=== PATIENT | female | born 1935 | race Caucasian/White ===

== ENCOUNTER → 2017-12-11 | Outpatient (CLI) | payer OTHER ==
[~2017-12-11] MED LIST: ALBU90OI6 INH; ALBU90OI61 INH; ALEN70 PO; ASPI81EC; ATOR10; BUDE.25 NEB; CENTRUM COMPLE1 EACH PO; CHOL10002; COMBIVENT RESPIM4 GM INH; CYAN1000 PO; CYCL10 PO; Calcitriol0.5 MCG PO; Cipro250 MG PO; ESTR1; FISH OIL 1,0001 EAC1 PO; FLUO20 PO; FLUSAL2505 INH; Fish Oil300 MG PO; Flagyl500 MG PO; GLYMET1.25; HYDACE5 PO; HYDCHL25 PO; LISI20 PO; LORA1 PO; METF500; METF500 PO; METR250; MIRT15; MULVITA; NITR100; NITR100 PO; OXYB5; PANT40 PO; PROM25 PO; Prinivil10 MG PO; RAMI1.25; RAMI2.5; RXCYCL10 PO; RXHYDACE PO; RXLORA1 PO; SIMV40 PO; SIMV80 PO; TETR250; TOLT2; TRAZ100; TRAZ50 PO; Vitamin B Comple1 EA PO; Zofran Odt4 MG SL; [UNRECOGNIZED DRUG - REMARK]
== END | disposition home or self-care (01) ==
LOC: LAB 17:32
DX: N39.0 Urinary tract infection, site not specified (principal)
CPT/HCPCS: 87086

== ENCOUNTER → 2019-03-04 | Outpatient (CLI) | payer OTHER | END | disposition home or self-care (01) | LOC: LAB SHORT 13:39 → LAB 13:39 | DX: N39.0 Urinary tract infection, site not specified (principal) | CPT/HCPCS: 87077; 87086; 87186 ==

== ENCOUNTER → 2019-05-27 | Outpatient (CLI) | payer OTHER ==
[2019-05-27 15:52] LABS: Alanine Aminotransfer (ALT/SGP 19 U/L (12-78); Albumin, Blood 4.1 g/dL (3.4-5.0); Albumin/Globulin Ratio 1.3 (0.8-1.8); Alk Phos 84 U/L (50-136); Anion Gap 6 mmol/L (6-16); Bilirubin, Total 0.6 mg/dL (0.1-1.0); Blood Urea Nitrogen 19 mg/dL (8-24); Bun/Creatinine Ratio 17.6 (12.0-20.0); CHOL/HDL RATIO 2.5; CO2, Blood 29 mmol/L (21-32); Calcium, Blood 9.2 mg/dL (8.5-10.1); Chloride, Blood 105 mmol/L (98-108); Cholesterol 125 mg/dL (50-200); Creatinine, Blood 1.08 mg/dL (0.40-1.00); Globulin, Blood 3.2 g/dL (2.2-4.0); Glomerular Filtration Rate 52 (60-); Glucose, Blood 132 mg/dL (70-99); HDL Cholesterol 50 mg/dL (>39); Low Density Lipoprotein Chol 52 mg/dL (0-110); Potassium, Blood 4.2 mmol/L (3.5-5.5); Sodium, Blood 140 mmol/L (136-145); Total Protein, Blood 7.3 g/dL (6.4-8.2); Triglycerides 115 mg/dL (30-160); Very Low Density Lipoprot Chol 23 mg/dL (6-32)
[2019-05-27 15:56] LABS: Aspartate Aminotrans (AST/SGOT 18 U/L (12-37)
== END ==
LOC: LAB SHORT 14:18 → LAB 14:18
PROVIDERS: Hospitalist
DX: E11.22 Type 2 diabetes mellitus with diabetic chronic kidney disease (principal); I12.9 Hypertensive chronic kidney disease with stage 1 through stage 4 chronic kidney disease, or unspecified chronic kidney disease; N18.9 Chronic kidney disease, unspecified; E11.42 Type 2 diabetes mellitus with diabetic polyneuropathy; E78.5 Hyperlipidemia, unspecified
CPT/HCPCS: 80053; 80061; 83036

== ENCOUNTER → 2019-12-01 | Outpatient (CLI) | payer OTHER ==
[~2019-12-01] MED LIST changes: -ASPI81EC; +Aspirin EC81 MG PO; -CENTRUM COMPLE1 EACH PO; +CEPH500 PO; +FISH OIL 1,001000 MG PO; -FLUO20 PO; +Lipitor20 MG PO; +MIRT15 PO; +MULTI VITAMIN1 EACH PO; +MYNEPHRON CAPSUL1 MG PO; +Prozac20 MG PO
== END | disposition home or self-care (01) ==
LOC: LAB SHORT 14:16 → LAB 14:16
DX: N39.0 Urinary tract infection, site not specified (principal)
CPT/HCPCS: 87077; 87086; 87186

== ENCOUNTER → 2020-11-08 | Outpatient (CLI) | payer OTHER | LOC: LAB SHORT 14:43 → LAB 14:43 | DX: N30.00 Acute cystitis without hematuria (principal) | CPT/HCPCS: 87077; 87086; 87147; 87186 ==

== ENCOUNTER → 2021-06-01 | Outpatient (CLI) | payer MEDICARE, OTHER ==
[2021-06-01 15:04] LABS: BASOPHILS ABSOLUTE AUTO 0.06 K/mm3 (0.00-0.23); BASOPHILS PERCENT AUTO 1 % (0-2); EOSINOPHILS ABSOLUTE AUTO 0.08 K/mm3 (0.00-0.68); EOSINOPHILS PERCENT AUTO 1 % (0-6); Hematocrit 38.1 % (33.0-51.0); Hemoglobin 12.3 g/dL (11.5-16.0); IMMATURE GRAN ABSOLUTE AUTO 0.02 K/mm3 (0.00-0.10); IMMATURE GRAN PERCENT AUTO 0 % (0-1); LYMPHOCYTES ABSOLUTE AUTO 1.47 K/mm3 (0.84-5.20); LYMPHOCYTES PERCENT AUTO 22 % (21-46); MONOCYTES ABSOLUTE AUTO 0.35 K/mm3 (0.16-1.47); MONOCYTES PERCENT AUTO 5 % (4-13); Mean Corpuscular HGB 30.1 pg (26.0-34.0); Mean Corpuscular HGB Conc 32.3 g/dL (31.5-36.5); Mean Corpuscular Volume 93 fL (80-100); Mean Platelet Volume 9.9 fL (9.1-12.4); NEUTROPHILS ABSOLUTE AUTO 4.78 K/mm3 (1.96-9.15); NEUTROPHILS PERCENT AUTO 71 % (41-73); Platelet Count 199 K/mm3 (150-400); RDW Standard Deviation 44.6 fL (35.1-46.3); Red Blood Cell Count 4.09 M/mm3 (3.80-5.20); White Blood Cell Count 6.76 K/mm3 (4.00-11.30)
[2021-06-01 15:50] LABS: CHOL/HDL RATIO 3.7; Cholesterol 158 mg/dL (50-200); HDL Cholesterol 43 mg/dL (>39); Low Density Lipoprotein Chol 87 mg/dL (0-110); Triglycerides 142 mg/dL (30-160); Very Low Density Lipoprot Chol 28 mg/dL (6-32)
[2021-06-01 16:12] LABS: Albumin, Blood 4.1 g/dL (3.4-5.0); Bilirubin, Total 0.7 mg/dL (0.1-1.0); Bun/Creatinine Ratio 20.1 (12.0-20.0); Calcium, Blood 9.1 mg/dL (8.5-10.1); Creatinine, Blood 1.49 mg/dL (0.40-1.00); Globulin, Blood 4.2 g/dL (2.2-4.0); Potassium, Blood 5.4 mmol/L (3.5-5.5); Total Protein, Blood 8.3 g/dL (6.4-8.2)
== END | disposition home or self-care (01) ==
LOC: LAB SHORT 13:48 → LAB 13:48
PROVIDERS: Hospitalist
DX: E11.42 Type 2 diabetes mellitus with diabetic polyneuropathy (principal); E11.22 Type 2 diabetes mellitus with diabetic chronic kidney disease; I12.9 Hypertensive chronic kidney disease with stage 1 through stage 4 chronic kidney disease, or unspecified chronic kidney disease; N18.31 Chronic kidney disease, stage 3a; E78.5 Hyperlipidemia, unspecified
CPT/HCPCS: 80053; 80061; 83036; 83970; 85025

== ENCOUNTER → 2022-08-09 | Outpatient (CLI) | payer MEDICARE, OTHER | LOC: LAB 11:15 → LAB SHORT 11:15 | DX: R30.0 Dysuria (principal) | CPT/HCPCS: 87077; 87086; 87186 ==

== ENCOUNTER → 2023-03-07 | Outpatient (CLI) | payer MEDICARE, OTHER ==
[2023-03-07 16:56] LABS: Microalb/Creat Ratio UR, Rand 125.984 mg/g (0.000-30.000)
[2023-03-07 18:45] LABS: Calcium, Blood 9.3 mg/dL (8.5-10.1); Potassium, Blood 3.9 mmol/L (3.5-5.5)
== END | disposition home or self-care (01) ==
LOC: LAB SHORT 09:35 → LAB 09:35
PROVIDERS: Hospitalist
DX: E11.22 Type 2 diabetes mellitus with diabetic chronic kidney disease (principal); N18.9 Chronic kidney disease, unspecified; N25.81 Secondary hyperparathyroidism of renal origin
CPT/HCPCS: 80048; 82043; 82570; 83970

== ENCOUNTER → 2023-05-02 | Outpatient (CLI) | payer MEDICARE, OTHER | END | disposition home or self-care (01) | LOC: LAB SHORT 10:30 → LAB 10:30 | DX: N39.46 Mixed incontinence (principal) | CPT/HCPCS: 87077; 87086; 87186 ==

== ENCOUNTER 2023-05-21 11:35 | Inpatient (IN) | payer MEDICARE, OTHER ==
[~2023-05-21] VITALS: Ht 160 cm; Wt 51.8 kg
[2023-05-21 12:19] LABS: BASOPHILS ABSOLUTE AUTO 0.03 K/mm3 (0.00-0.23); BASOPHILS PERCENT AUTO 1 % (0-2); EOSINOPHILS ABSOLUTE AUTO 0.06 K/mm3 (0.00-0.68); EOSINOPHILS PERCENT AUTO 1 % (0-6); Hematocrit 35.9 % (33.0-51.0); Hemoglobin 11.8 g/dL (11.5-16.0); IMMATURE GRAN ABSOLUTE AUTO 0.02 K/mm3 (0.00-0.10); IMMATURE GRAN PERCENT AUTO 0 % (0-1); LYMPHOCYTES ABSOLUTE AUTO 1.35 K/mm3 (0.84-5.20); LYMPHOCYTES PERCENT AUTO 21 % (21-46); MONOCYTES PERCENT AUTO 6 % (4-13); Mean Corpuscular HGB 29.3 pg (26.0-34.0); Mean Corpuscular HGB Conc 32.9 g/dL (31.5-36.5); Mean Corpuscular Volume 89 fL (80-100); Mean Platelet Volume 9.6 fL (9.1-12.4); NEUTROPHILS ABSOLUTE AUTO 4.66 K/mm3 (1.96-9.15); NEUTROPHILS PERCENT AUTO 72 % (41-73); Platelet Count 161 K/mm3 (150-400); RDW Coefficient Variation 13.2 % (11.7-14.2); RDW Standard Deviation 43.2 fL (35.1-46.3); Red Blood Cell Count 4.03 M/mm3 (3.80-5.20); White Blood Cell Count 6.52 K/mm3 (4.00-11.30)
[2023-05-21] MEDS ORDERED: PROZAC2010 PO ×2 (12:23→12:24)
[2023-05-21] MEDS ORDERED: LISI20 PO (12:23)
[2023-05-21] MEDS ORDERED: CALCITRIOL0.5 MC1 PO (12:23)
[2023-05-21] MEDS ORDERED: OXYB5 PO (12:23)
[2023-05-21] MEDS ORDERED: PANTOPRAZOLE SO40 M2 PO (12:24)
[2023-05-21] MEDS ORDERED: REMERON1510 PO (12:24)
[2023-05-21 12:45] LABS: Albumin, Blood 3.2 g/dL (3.4-5.0); Albumin/Globulin Ratio 0.8 (0.8-1.8); Bilirubin, Total 0.6 mg/dL (0.1-1.0); Bun/Creatinine Ratio 16.7 (12.0-20.0); Calcium, Blood 8.9 mg/dL (8.5-10.1); Creatinine, Blood 1.02 mg/dL (0.40-1.00); Globulin, Blood 3.9 g/dL (2.2-4.0); Potassium, Blood 4.4 mmol/L (3.5-5.5); Total Protein, Blood 7.1 g/dL (6.4-8.2)
[2023-05-21 12:53] LABS: Source, Urine Clean Catch
[2023-05-21 12:57] LABS: Bilirubin, Urine Neg (Neg); Blood, Urine 2+ (Neg); Glucose Qualitative, Urine Neg (Neg); Ketones, Urine Neg (Neg); Leukocyte Esterase, Urine 3+ (Neg); Nitrite, Urine Neg (Neg); Protein, Urine 2+ (Neg); Urobilinogen, Urine 1+ (Normal)
[2023-05-21 13:11] LABS: Appearance, Urine Hazy (Clear); Color, Urine Yellow (P-Yellow)
[2023-05-21 13:15] LABS: White Blood Cells, Urine TNTC /hpf (0-5)
[2023-05-21 13:16] LABS: Bacteria Many /hpf; Mucus Light (0-Heavy); Red Blood Cells, Urine 0-2 /hpf (0-2); Squamous Epithelial Cells Rare /hpf (Few); Transitional Epithelial Cells Rare /hpf (0-Rare)
[2023-05-21] MEDS ORDERED: Simvastatin40 MG PO (16:38)
[2023-05-21 17:38] VITALS: BP 169/90
--- NOTE | 2023-05-21 18:00 | NUR ---
pt arrived to 339 via gurney from ER, report obtained, pt is a/ox3, forgetful and very [place], in good spirits, states she's feeling some better, cooperative with care, follows commands well, denies pain, lungs are clear slightly course in bases, on r/a, no cough noted, or reported, hrr, tele is ordered, will place as soon as available, was reported she was sr in ed, no edema noted, ppp+2, cap refill<3sec, vs stable, afebrile, piv to rfa, site is clear and patent, btx4, abd flat soft nontender, voids via purwick at this time as she feels too weak to get to bsc, skin c/w/d, with some small echymotic areas to arms, skin is frail, willie ngo, oriented to room layout and call system, call light in reach. instructed her to not get up without assist, but she forgot and attempted, bed alarm activated.
[2023-05-21 19:54] VITALS: BP 153/81
[2023-05-22 04:29] VITALS: BP 154/96
[2023-05-22 05:53] LABS: BASOPHILS ABSOLUTE AUTO 0.04 K/mm3 (0.00-0.23); BASOPHILS PERCENT AUTO 1 % (0-2); EOSINOPHILS ABSOLUTE AUTO 0.11 K/mm3 (0.00-0.68); EOSINOPHILS PERCENT AUTO 2 % (0-6); Hematocrit 36.1 % (33.0-51.0); Hemoglobin 11.9 g/dL (11.5-16.0); IMMATURE GRAN ABSOLUTE AUTO 0.03 K/mm3 (0.00-0.10); IMMATURE GRAN PERCENT AUTO 1 % (0-1); LYMPHOCYTES ABSOLUTE AUTO 1.19 K/mm3 (0.84-5.20); LYMPHOCYTES PERCENT AUTO 22 % (21-46); MONOCYTES ABSOLUTE AUTO 0.54 K/mm3 (0.16-1.47); MONOCYTES PERCENT AUTO 10 % (4-13); Mean Corpuscular Volume 88 fL (80-100); Mean Platelet Volume 9.8 fL (9.1-12.4); NEUTROPHILS ABSOLUTE AUTO 3.63 K/mm3 (1.96-9.15); NEUTROPHILS PERCENT AUTO 66 % (41-73); Platelet Count 149 K/mm3 (150-400); RDW Coefficient Variation 13.2 % (11.7-14.2); RDW Standard Deviation 42.2 fL (35.1-46.3); Red Blood Cell Count 4.11 M/mm3 (3.80-5.20); White Blood Cell Count 5.54 K/mm3 (4.00-11.30)
--- NOTE | 2023-05-22 06:07 | NUR ---
SHIFT SUMMERY PT RESSTING IN BED, PT STATED SHE WAS COLD WARM BLANKETS APPLYED. PT GIVEN A SANDWITCH , PT HAD STATED SHE WAS HUNGERY. PURE WICK WITH YELLOW URINE IN CONTAINER. PT VERY HOPI BUT DID FIRE SAFETY TEACHING UNSURE IF PT ABLE TO HEAR ENOUGH OF TEACHING. CALL LIGHT IN REACH BED ALARM ON.
[2023-05-22 06:32] LABS: Calcium, Blood 8.9 mg/dL (8.5-10.1); Creatinine, Blood 1.12 mg/dL (0.40-1.00); Potassium, Blood 4.2 mmol/L (3.5-5.5)
[2023-05-22 07:37] VITALS: BP 156/75
--- NOTE | 2023-05-22 09:00 | NUR ---
pt laying in bed awake a/ox3, forgetful at time, profoundly jackson, lungs are clear, slightly course in bases, resp even and unlabored, no cough noted, hrr, tele in place running sr per monitor, see strip, no edema noted, ppp+2, cap refill <3sec, vs stable, afebrile, piv site to rfa site clear and patent, btx4 abd flat soft nontender, voids via purwick, draing liza urine skin has an abrasion to right hand, dressing in place, maew, weak, willie, call light in reach.
[2023-05-22 14:49] VITALS: BP 120/63
[2023-05-22] MEDS ORDERED: XARELTO20 MG PO (16:58)
[2023-05-22] MEDS ORDERED: CEFD300 PO (16:59)
--- NOTE | 2023-05-22 18:46 | NUR ---
pt doing ok, is more alert and conversing with family while eating dinner at this time, sitting up on the side of the bed eating dinner, new dressing was placed on her right hand by medical student, continues with negin, no further changes this shift. call light in reach.
[2023-05-22 20:10] VITALS: BP 158/92
[2023-05-23 04:43] VITALS: BP 148/72
--- NOTE | 2023-05-23 05:34 | NUR ---
CHRONOMETER REPAIRER SUMMARY NO ACUTE EVENTS OVERNIGHT. A&OX4. [place]. PATIENT EFFECTIVELY COMMUNICATES NEEDS. VSS. RR EVEN AND UNLABORED ON RA. PATIENT IS ON BEDREST. PURWICK IN PLACE AND DRAINING YELLOW-COLORED URINE. SKIN TEAR TO RIGHT POSTERIOR HAND WITH OVERLYING MEPILEX DRESSING. BED LOW AND LOCKED. CALL LIGHT WITHIN REACH. THIS RN WILL CONTINUE TO MONITOR.
[2023-05-23 08:12] VITALS: BP 142/95
--- NOTE | 2023-05-23 11:36 | NUR ---
DISCHARGE INSTRUCTIONS COMPLETED AND DISCUSSED WITH PT AND EXPRESSING UNDERSTANDING. EXPLAINED TO PTS ANTIBIOTIC NEEDS TO BE PICKED UP SANIA AND TAKEN FOR THE MORNING. DRESSED AND TAKEN TO [facility] VIA W/C.
--- NOTE | 2023-05-23 12:44 | NUR ---
UPDATE TO DISCHARGE MEDICATIONS PER DR. RUANO PATIENT WILL ONLY NEED A 7 DAY REGIMEN OF CEFDINIR AT DISCHARGE. [facility] CALLED AND GIVEN VERBAL UPDATE TO PRESCRIPTION TO CHANGE FROM 14 DAY TO 7 DAY COURSE. .
== END 2023-05-23 11:09 | disposition home or self-care (01) | DRG 689 ==
LOC: ER 11:35 → MEDS 11:36
PROVIDERS: Family Medicine; Physician Assistant; ADMIT Internal Medicine
DX: N39.0 Urinary tract infection, site not specified (principal); G92.8 Other toxic encephalopathy; R41.82 Altered mental status, unspecified; I48.91 Unspecified atrial fibrillation; B96.1 Klebsiella pneumoniae [K. pneumoniae] as the cause of diseases classified elsewhere; Z66 Do not resuscitate; M19.90 Unspecified osteoarthritis, unspecified site; F32.A Depression, unspecified; E78.5 Hyperlipidemia, unspecified; N18.30 Chronic kidney disease, stage 3 unspecified; E11.22 Type 2 diabetes mellitus with diabetic chronic kidney disease; I12.9 Hypertensive chronic kidney disease with stage 1 through stage 4 chronic kidney disease, or unspecified chronic kidney disease; Z88.0 Allergy status to penicillin; Z88.2 Allergy status to sulfonamides; Z88.5 Allergy status to narcotic agent; Z88.1 Allergy status to other antibiotic agents; Z88.8 Allergy status to other drugs, medicaments and biological substances; Z79.82 Long term (current) use of aspirin; Z79.899 Other long term (current) drug therapy; Z79.2 Long term (current) use of antibiotics; Z90.89 Acquired absence of other organs; Z90.49 Acquired absence of other specified parts of digestive tract; Z90.710 Acquired absence of both cervix and uterus; Z98.890 Other specified postprocedural states; Z85.3 Personal history of malignant neoplasm of breast
CPT/HCPCS: 36415; 51701; 70450; 71046; 80048; 80053; 81001; 82140; 84443; 85025; 87077; 87086; 87186; 93005; 93010; 96365-59; 96366-59; 96376; 97162; 97166; 97530; 97535; 99285-25; A9270; G0378; J0696

== ENCOUNTER → 2023-06-12 | Outpatient (CLI) | payer MEDICARE, OTHER ==
[~2023-06-12] MED LIST changes: +CALCITRIOL0.5 MC1 PO; +CEFD300 PO; +OXYB5 PO; +PANTOPRAZOLE SO40 M2 PO; +PROZAC2010 PO; +REMERON1510 PO; +Simvastatin40 MG PO; +XARELTO20 MG PO
[2023-06-12 17:38] LABS: Source, Urine Clean Catch
[2023-06-12 18:53] LABS: Appearance, Urine Hazy (Clear); Bilirubin, Urine Neg (Neg); Blood, Urine 5+ (Neg); Color, Urine Amber (P-Yellow); Glucose Qualitative, Urine Neg (Neg); Ketones, Urine Neg (Neg); Leukocyte Esterase, Urine 1+ (Neg); Nitrite, Urine Neg (Neg); Protein, Urine 2+ (Neg); Specific Gravity, Urine 1.015 (1.003-1.022); Urobilinogen, Urine NORM (Normal)
[2023-06-12 19:02] LABS: Bacteria Mod /hpf; Calcium Oxalate Crystals Mod /hpf; Red Blood Cells, Urine 50-100 /hpf (0-2); Squamous Epithelial Cells Few /hpf (Few)
[2023-06-12 19:03] LABS: Transitional Epithelial Cells Rare /hpf (0-Rare)
== END | disposition home or self-care (01) ==
LOC: LAB SHORT 17:36 → LAB 17:36
PROVIDERS: Hospitalist
DX: R31.9 Hematuria, unspecified (principal)
CPT/HCPCS: 81001; 87086

== ENCOUNTER → 2023-07-30 | Outpatient (CLI) | payer MEDICARE, OTHER | LOC: LAB 09:00 → LAB SHORT 09:00 | DX: R31.0 Gross hematuria (principal) | CPT/HCPCS: 87086 ==

== ENCOUNTER → 2024-10-17 | Outpatient (CLI) | payer MEDICARE, OTHER ==
[~2024-10-17] MED LIST changes: +POTA10T PO
== END ==
LOC: LAB SHORT 15:15 → LAB 15:15
DX: N30.00 Acute cystitis without hematuria (principal)
CPT/HCPCS: 87086

== ENCOUNTER 2024-10-26 06:36 | Inpatient (IN) | payer OTHER, MEDICARE ==
[2024-10-26] VITALS (10 sets, daily range): BP systolic 100–130; BP diastolic 59–92
[~2024-10-26] VITALS: Ht 160 cm; Wt 50.1 kg
[~2024-10-26 06:36] MED LIST changes: -POTA10T PO
[2024-10-26 08:40] LABS: BASOPHILS ABSOLUTE AUTO 0.06 K/mm3 (0.00-0.23); BASOPHILS PERCENT AUTO 1 % (0-2); EOSINOPHILS ABSOLUTE AUTO 0.08 K/mm3 (0.00-0.68); EOSINOPHILS PERCENT AUTO 1 % (0-6); Hematocrit 37.6 % (33.0-51.0); Hemoglobin 12.3 g/dL (11.5-16.0); IMMATURE GRAN ABSOLUTE AUTO 0.05 K/mm3 (0.00-0.10); IMMATURE GRAN PERCENT AUTO 1 % (0-1); LYMPHOCYTES ABSOLUTE AUTO 2.16 K/mm3 (0.84-5.20); LYMPHOCYTES PERCENT AUTO 30 % (21-46); MONOCYTES ABSOLUTE AUTO 0.51 K/mm3 (0.16-1.47); MONOCYTES PERCENT AUTO 7 % (4-13); Mean Corpuscular HGB 29.3 pg (26.0-34.0); Mean Corpuscular HGB Conc 32.7 g/dL (31.5-36.5); Mean Corpuscular Volume 90 fL (80-100); Mean Platelet Volume 9.9 fL (9.1-12.4); NEUTROPHILS ABSOLUTE AUTO 4.42 K/mm3 (1.96-9.15); NEUTROPHILS PERCENT AUTO 61 % (41-73); Platelet Count 266 K/mm3 (150-400); RDW Coefficient Variation 14.9 % (11.7-14.2); White Blood Cell Count 7.28 K/mm3 (4.00-11.30)
[2024-10-26 08:50] LABS: Bun/Creatinine Ratio 24.7 (12.0-20.0); Calcium, Blood 9.8 mg/dL (8.5-10.1); Creatinine, Blood 1.9 mg/dL (0.40-1.00); Potassium, Blood 4.8 mmol/L (3.5-5.5)
[2024-10-26] MEDS ORDERED: POTA10T PO (09:06)
[2024-10-26 09:11] LABS: International Normalized Ratio 1.08; Prothrombin Time Results 11.5 Sec (9.7-11.5)
[2024-10-26] MEDS ORDERED: Morphine Sulfate 4 MG/1 ML Injection IV ONE (09:20)
[2024-10-26] MEDS ORDERED: FLU VACC TS2024-25(6MOS UP)/PF 45 MCG/0.5 ML SYRINGE IM SCH (10:40)
[2024-10-26] MEDS ORDERED: FentaNYL Citrate 50 MCG/ML 2 ML Injection IV PRN (10:40)
[2024-10-26] MEDS ORDERED: NS 1,000 ML IV SCH (10:40)
[2024-10-26] MEDS ORDERED: CeFAZolin Sodium 2,000 MG in NS 100 ML IV SCH ×2 (13:20→23:45)
[2024-10-26] MEDS ORDERED: Tranexamic Acid 100 ML IV SCH ×2 (13:20)
[2024-10-26] MEDS ORDERED: propofoL 20 ML IV ONE (15:20)
[2024-10-26] MEDS ORDERED: FentaNYL Citrate 50 MCG/ML 2 ML Injection ONE (15:21)
[2024-10-26] MEDS ORDERED: ePHEDrine Sulfate 50 MG/ML 1ML Injection ONE (15:52)
[2024-10-26] MEDS ORDERED: Ondansetron HCl 2 MG / ML 2ML Vial ONE (16:07)
[2024-10-26] MEDS ORDERED: HydrALAZINE HCl 20 MG / ML 1ML Vial IV PRN (16:20)
--- NOTE | 2024-10-26 19:00 | NUR ---
ARRIVAL NOTE/SUMMARY PT ARRIVED TO ROOM 213 FROM PACU. DRESSINGS TO R HIP C/D/I, CIRCULATION TO RLE C/D/I, CAP REFILL <2 SECS. PT IS TOLERATING PO FLUIDS AND MINIMAL FOOD INTAKE W/O N/V. PAIN TREATED W/ FENTANYL PER EMAR DUE TO GRIMACING W/ MOVEMENT. PT CURRENTLY RESTING PEACEFULLY. VSS, PT IS ON RA W/ O2 SATS 98-100%. CONSULTED W/ DR. PARSONS REGARDING NEED FOR TELE PACU REPORTED PT WAS IN AFIB, NO ORDER FOR TELE RECIEVED. PAS IN PLACE. SPOUSE AT BEDSIDE WHO IS PT'S SOLE CAREGIVER AT HOME VOICES NEED FOR MORE CAREGIVER/FINANCIAL ASSISTANCE AT HOME. PT TO CONSULT W/ PALLIATIVE CARE AND CARE MANAGEMENT. NOC NURSE NOTIFIED. PT IS EXTREMELY [place] AND IS NOT RESPONDING VERBALLY TO STAFF, RESPONDS TO SPOUSE W/ SHORT ANSWERS. PT'S FRIEND TAMMY WAS AT BEDSIDE FOR SOME TIME POST OP AND IS KNOWLEDGABLE ABOUT PT'S HEALTH HISTORY. PT RESTING W/ CALL LIGHT IN REACH AND BED ALARM ON FOR SAFETY.
[2024-10-26] MEDS ORDERED: Polyethylene Glycol 3350 17 gm PO SCH (21:00)
[2024-10-26] MEDS ORDERED: Mirtazapine 15 MG Tab PO SCH (21:00)
[2024-10-26] MEDS ORDERED: Atorvastatin 10 MG Tab PO SCH (21:00)
[2024-10-26] MEDS ORDERED: Acetaminophen 325 MG TABLET PO PRN (21:30)
[2024-10-27 00:23] VITALS: BP 116/59
[2024-10-27] MEDS ORDERED: CeFAZolin Sodium 1,000 MG in NS 50 ML IV SCH (04:00)
--- NOTE | 2024-10-27 04:22 | NUR ---
SHIFT SUMMARY POD1 R HIP NAILING. AQUACEL TO R HIP C/D/I. PATIENT HAS PUREWICK IN PLACE, VOIDING. AOX1-2 PATIENT IS REDIRECTABLE. SPOUSE IN ROOM T/O NIGHT. MEDICATED FOR PAIN. TOLERATING PO INTAKE, REPOSITIONED T/O NIGHT. BED ALARM ON, CALL LIGHT IN REACH, VSS.
[2024-10-27 04:32] VITALS: BP 95/65
[2024-10-27 05:50] LABS: BASOPHILS ABSOLUTE AUTO 0.02 K/mm3 (0.00-0.23); BASOPHILS PERCENT AUTO 0 % (0-2); EOSINOPHILS ABSOLUTE AUTO 0.06 K/mm3 (0.00-0.68); EOSINOPHILS PERCENT AUTO 1 % (0-6); Hematocrit 33.7 % (33.0-51.0); IMMATURE GRAN ABSOLUTE AUTO 0.02 K/mm3 (0.00-0.10); IMMATURE GRAN PERCENT AUTO 0 % (0-1); LYMPHOCYTES ABSOLUTE AUTO 1.75 K/mm3 (0.84-5.20); LYMPHOCYTES PERCENT AUTO 22 % (21-46); MONOCYTES ABSOLUTE AUTO 0.67 K/mm3 (0.16-1.47); MONOCYTES PERCENT AUTO 9 % (4-13); Mean Corpuscular HGB 29.3 pg (26.0-34.0); Mean Corpuscular HGB Conc 32.6 g/dL (31.5-36.5); Mean Corpuscular Volume 90 fL (80-100); Mean Platelet Volume 9.5 fL (9.1-12.4); NEUTROPHILS ABSOLUTE AUTO 5.32 K/mm3 (1.96-9.15); NEUTROPHILS PERCENT AUTO 68 % (41-73); Platelet Count 185 K/mm3 (150-400); RDW Coefficient Variation 14.9 % (11.7-14.2); RDW Standard Deviation 48.5 fL (35.1-46.3); Red Blood Cell Count 3.76 M/mm3 (3.80-5.20); White Blood Cell Count 7.84 K/mm3 (4.00-11.30)
[2024-10-27] MEDS ORDERED: Pantoprazole Sodium 40 MG Tab PO SCH (06:00)
[2024-10-27 06:27] LABS: Bun/Creatinine Ratio 27.1 (12.0-20.0); Calcium, Blood 9.5 mg/dL (8.5-10.1); Creatinine, Blood 1.44 mg/dL (0.40-1.00); Potassium, Blood 5.1 mmol/L (3.5-5.5)
[2024-10-27 07:20] VITALS: BP 102/62
[2024-10-27] MEDS ORDERED: Heparin Sodium,Porcine 5,000 UNIT/0.5 ML SDV SC SCH (09:00)
[2024-10-27] MEDS ORDERED: FLUoxetine HCL 20 MG CAP PO SCH (09:00)
[2024-10-27] MEDS ORDERED: Calcitriol 0.25 MCG Cap PO SCH (09:00)
[2024-10-27] MEDS ORDERED: Heparin Sodium 5000 Units/ML 1ML MDV SC SCH (09:00)
[2024-10-27] MEDS ORDERED: Potassium Chloride 10 Meq Tablet SA PO SCH (09:00)
[2024-10-27] MEDS ORDERED: Enoxaparin 30 MG/0.3 ML SYR SC SCH (09:00)
[2024-10-27] MEDS ORDERED: TraMADol HCl 50 MG Tab PO PRN (13:50)
[2024-10-27 15:27] VITALS: BP 93/54
--- NOTE | 2024-10-27 16:12 | NUR ---
SHIFT SUMMARY POD 1 R HIP NAILING DRESSING TO R HIP CDI. PT UP IN CHAIR DURING SHIFT REQUIRES 2 ASSIST WITH TRANSFER, DIFFICULTY FOLLOWING DIRECTIONS R/T BASELINE DEMENTIA AND BEING HARD OF HEARING. DOES NOT USE CALL LIGHT, CHAIR ALARM ON DURING SHIFT. TOLERATING DIET WELL. PLAN WILL BE TO DISCHARGE TO SNF ONCE
[2024-10-27 19:20] VITALS: BP 96/52
--- NOTE | 2024-10-28 04:28 | NUR ---
SHIFT SUMMARY; PATIENT SLEPT IN SHORT INTERVALS. BUT DID NOT TRY TO GET UP TONIGHT, SPOUSE STAYED IN ROOM ALL NIGHT. MEDICATED FOR PAIN X 2. INCONT LARGE CLEAR URINE X 1, NO BMS YET.BED ALARM ON.
[2024-10-28 05:04] VITALS: BP 133/74
[2024-10-28 05:50] LABS: Bun/Creatinine Ratio 26.2 (12.0-20.0); Calcium, Blood 8.9 mg/dL (8.5-10.1); Creatinine, Blood 1.22 mg/dL (0.40-1.00); Potassium, Blood 5.3 mmol/L (3.5-5.5)
[2024-10-28 07:48] VITALS: BP 114/68
[2024-10-28] MEDS ORDERED: TraMADol HCl 50 MG Tab PO PRN (11:49)
[2024-10-28] MEDS ORDERED: DiphenhydrAMINE HCL 25 MG Cap PO PRN (14:45)
[2024-10-28] MEDS ORDERED: OxyCODONE 5 mg/Acetamin 325 mg TABLET PO PRN (14:45)
[2024-10-28] MEDS ORDERED: Sennosides 8.6 MG Tab PO PRN (14:45)
[2024-10-28 15:35] VITALS: BP 96/56
--- NOTE | 2024-10-28 16:38 | NUR ---
SHIFT SUMMARY POD 2 GAMMA NAIL PT PAIN IMPROVED DURING SHIFT. REQUIRES IV FOR BREAKTHROUGH AT TIMES. ABLE TO STAND AND PIVOT. INC OF VOID DURING SHIFT. TOLERATING DIET WELL, APPETITE IMPROVED TODAY. DRESSINGS TO R HIP REMAIN CDI. BED ALARM ON T/O SHIFT. PLAN IS FOR SNF DISCHARGE AT SOME POINT. ECHO BEING DONE AT THIS TIME
[2024-10-28 19:30] VITALS: BP 97/46
[2024-10-28 19:33] VITALS: BP 105/60
[2024-10-29 03:44] VITALS: BP 147/68
--- NOTE | 2024-10-29 04:56 | NUR ---
SHIFT SUMMARY PT S/P RIGHT HIP REPAIR. PT HAS RESTED T/O THE NIGHT. PAIN MANAGED WITH MEDS PER EMAR. PT APPEARED RESTING COMFORTABLY DURING NURSING ROUNDS. PT HAS SOME CONSUSION AT BASELINE AND IS VERY [place]. VITALS STABLE, SURGICAL SITE WNL. BED IN LOWEST POSITION, CALL LIGHT WITHIN REACH.
[2024-10-29 05:46] LABS: Bun/Creatinine Ratio 26.7 (12.0-20.0); Creatinine, Blood 1.16 mg/dL (0.40-1.00); Potassium, Blood 5.2 mmol/L (3.5-5.5)
[2024-10-29 07:28] VITALS: BP 121/64
--- NOTE | 2024-10-29 08:00 | NUR ---
INTIAL ASSESSMENT: Patient is resting with eyes closed, she wakes to verbal stimuli. She is oriented to her name only. When asked about pain she states, "it hurts." She winces with any touch to her right hip. HRR, murmur noted, VSS. LS CTA, Biox high 90s on RA. BT+. She has a right hip wound with aquacel in place, CDI with scant oozing noted. PPP. Attends changed at this time, patient is hollering out in pain. Patient given AM meds with a pain pill. She is sitting up in bed eating breakfast. Pillow propped under right hip. Call light in reach. Bed alarm on for safety.
--- NOTE | 2024-10-29 11:00 | NUR ---
Update: Dr. Duarte is rounding on patient, plan is for the patient to be discharged to SNF today. Her nighbor who has been helping care for the patient voiced some concerns regarding patients pain control with Percocet. This RN informed the visitor the patient has been comfortable as long as staff and patient aren't moving the leg. Realistic pain goals set with Conchita patients neighbor that the pain will likely not be completely relieved, but will lessen as she heals. Conchita keeps reverting back to the fact that staff are not giving the patient IV Fentanyl, it was reiterated as she progresses we aim more toward oral pain management and as per the RN post pain med assessment the pain is controlled with oral pain medication. MD reinforced this plan. Patient started to C/O some nausea. Dr. Duarte would like to proceed with premedicating the patient with Zofran and then medicating with 2 Percocet.
[2024-10-29] MEDS ORDERED: Ondansetron 4 MG TAB PO PRN (11:50)
[2024-10-29] MEDS ORDERED: FentaNYL 12 MCG/HR Patch TOP SCH (11:50)
[2024-10-29 14:09] VITALS: BP 98/65
[2024-10-29] MEDS ORDERED: MIRALAX17 GM PO (14:22)
[2024-10-29] MEDS ORDERED: Acetaminophen650 M1 PO (14:22)
--- NOTE | 2024-10-29 16:58 | NUR ---
DISCHARGE: Report given to RN at [facility], patient was discharged with her discharge packet to SNF.
== END 2024-10-29 17:08 | DRG 481 ==
LOC: ER 06:36 → SURS 06:40
PROVIDERS: Orthopaedic Surgery Sports Medicine; Student in an Organized Health Care Education/Training Program; ADMIT Internal Medicine
PROC: 0QS636Z Reposition Right Upper Femur with Intramedullary Internal Fixation Device, Percutaneous Approach (ICD-10-PCS; principal; 2024-10-26 14:30)
DX: S72.141A Displaced intertrochanteric fracture of right femur, initial encounter for closed fracture (principal); E87.1 Hypo-osmolality and hyponatremia; N17.9 Acute kidney failure, unspecified; I48.20 Chronic atrial fibrillation, unspecified; N18.4 Chronic kidney disease, stage 4 (severe); I48.92 Unspecified atrial flutter; E11.22 Type 2 diabetes mellitus with diabetic chronic kidney disease; I12.9 Hypertensive chronic kidney disease with stage 1 through stage 4 chronic kidney disease, or unspecified chronic kidney disease; E78.5 Hyperlipidemia, unspecified; W01.198A Fall on same level from slipping, tripping and stumbling with subsequent striking against other object, initial encounter; F32.A Depression, unspecified; E11.65 Type 2 diabetes mellitus with hyperglycemia; M19.90 Unspecified osteoarthritis, unspecified site; K21.9 Gastro-esophageal reflux disease without esophagitis; R01.1 Cardiac murmur, unspecified; I35.0 Nonrheumatic aortic (valve) stenosis; Z88.0 Allergy status to penicillin; Z88.2 Allergy status to sulfonamides; Z88.5 Allergy status to narcotic agent; Z88.1 Allergy status to other antibiotic agents; Z88.8 Allergy status to other drugs, medicaments and biological substances; Z79.811 Long term (current) use of aromatase inhibitors; Z79.899 Other long term (current) drug therapy; Z79.02 Long term (current) use of antithrombotics/antiplatelets; Z85.3 Personal history of malignant neoplasm of breast; Z90.89 Acquired absence of other organs; Z90.49 Acquired absence of other specified parts of digestive tract; Z98.890 Other specified postprocedural states; Z98.42 Cataract extraction status, left eye; Z98.41 Cataract extraction status, right eye; Z90.710 Acquired absence of both cervix and uterus; Z87.891 Personal history of nicotine dependence; Z92.21 Personal history of antineoplastic chemotherapy; Z92.3 Personal history of irradiation; Z87.440 Personal history of urinary (tract) infections; Z45.2 Encounter for adjustment and management of vascular access device; Z87.19 Personal history of other diseases of the digestive system
CPT/HCPCS: 36415; 70450; 71045; 72125; 73502; 80048; 85025; 85610; 85730; 93005; 93010; 93306; 97110; 97162; 97530; 99285-25; A9270; C1713; J0690; J1644; J2270; J2405; J2704; J3010; J7030

== ENCOUNTER → 2024-11-26 | Outpatient (CLI) | payer MEDICARE, OTHER ==
[~2024-11-26] MED LIST changes: +Acetaminophen650 M1 PO; +MIRALAX17 GM PO; +POTA10T PO
[2024-11-26 19:06] LABS: Bun/Creatinine Ratio 17.8 (12.0-20.0); Calcium, Blood 9.7 mg/dL (8.5-10.1); Creatinine, Blood 1.07 mg/dL (0.40-1.00); Potassium, Blood 4.1 mmol/L (3.5-5.5)
== END ==
LOC: LAB 17:24 → LAB SHORT 17:24
PROVIDERS: Hospitalist
DX: I12.9 Hypertensive chronic kidney disease with stage 1 through stage 4 chronic kidney disease, or unspecified chronic kidney disease (principal)
CPT/HCPCS: 80048

== ENCOUNTER → 2024-12-18 | Outpatient (CLI) | payer MEDICARE, OTHER ==
[2024-12-18 18:05] LABS: Source, Urine Straight Cath
[2024-12-18 19:17] LABS: Appearance, Urine Turbid (Clear); Bilirubin, Urine Neg (Neg); Blood, Urine 5+ (Neg); Color, Urine Yellow (P-Yellow); Glucose Qualitative, Urine Neg (Neg); Ketones, Urine Neg (Neg); Leukocyte Esterase, Urine 3+ (Neg); Nitrite, Urine Pos (Neg); Protein, Urine 4+ (Neg); Urobilinogen, Urine 2+ (Normal)
[2024-12-18 19:40] LABS: White Blood Cells, Urine TNTC /hpf (0-5)
[2024-12-18 19:42] LABS: Amorphous Light (0-Heavy); Calcium Oxalate Crystals Mod /hpf
[2024-12-18 19:43] LABS: Bacteria Many /hpf; Squamous Epithelial Cells Not Seen /hpf (Few)
== END | disposition home or self-care (01) ==
LOC: LAB 18:02 → LAB SHORT 18:02
PROVIDERS: Hospitalist
DX: R30.0 Dysuria (principal); R82.90 Unspecified abnormal findings in urine
CPT/HCPCS: 81001; 87077; 87086; 87186

== ENCOUNTER → 2025-01-02 | Outpatient (CLI) | payer MEDICARE, OTHER ==
[2025-01-02 18:41] LABS: Source, Urine Clean Catch
[2025-01-02 19:17] LABS: Appearance, Urine Cloudy (Clear); Bilirubin, Urine Neg (Neg); Blood, Urine 2+ (Neg); Color, Urine Yellow (P-Yellow); Glucose Qualitative, Urine Neg (Neg); Ketones, Urine Neg (Neg); Leukocyte Esterase, Urine 3+ (Neg); Nitrite, Urine Pos (Neg); Protein, Urine 2+ (Neg); Specific Gravity, Urine 1.025 (1.003-1.022); Urobilinogen, Urine 1+ (Normal)
[2025-01-02 19:29] LABS: Calcium Oxalate Crystals Few /hpf; White Blood Cells, Urine 50-100 /hpf (0-5)
[2025-01-02 19:30] LABS: Bacteria Many /hpf; Squamous Epithelial Cells Few /hpf (Few)
== END ==
LOC: LAB 18:38 → LAB SHORT 18:38
PROVIDERS: Hospitalist
DX: R30.0 Dysuria (principal)
CPT/HCPCS: 81001; 87077; 87086; 87186

== ENCOUNTER 2025-01-10 08:22 | Inpatient (IN) | payer MEDICARE, OTHER ==
[~2025-01-10] VITALS: Ht 157.5 cm; Wt 49.9 kg
[2025-01-10 09:18] LABS: BASOPHILS ABSOLUTE AUTO 0.06 K/mm3 (0.00-0.23); BASOPHILS PERCENT AUTO 0 % (0-2); EOSINOPHILS PERCENT AUTO 0 % (0-6); Hematocrit 40.6 % (33.0-51.0); Hemoglobin 13.9 g/dL (11.5-16.0); IMMATURE GRAN ABSOLUTE AUTO 0.29 K/mm3 (0.00-0.10); IMMATURE GRAN PERCENT AUTO 1 % (0-1); LYMPHOCYTES ABSOLUTE AUTO 1.39 K/mm3 (0.84-5.20); LYMPHOCYTES PERCENT AUTO 7 % (21-46); MONOCYTES ABSOLUTE AUTO 0.77 K/mm3 (0.16-1.47); MONOCYTES PERCENT AUTO 4 % (4-13); Mean Corpuscular HGB 29.6 pg (26.0-34.0); Mean Corpuscular HGB Conc 34.2 g/dL (31.5-36.5); Mean Corpuscular Volume 87 fL (80-100); Mean Platelet Volume 9.7 fL (9.1-12.4); NEUTROPHILS ABSOLUTE AUTO 18.22 K/mm3 (1.96-9.15); NEUTROPHILS PERCENT AUTO 88 % (41-73); Platelet Count 182 K/mm3 (150-400); RDW Coefficient Variation 14.3 % (11.7-14.2); RDW Standard Deviation 45.7 fL (35.1-46.3); Red Blood Cell Count 4.69 M/mm3 (3.80-5.20); White Blood Cell Count 20.73 K/mm3 (4.00-11.30)
[2025-01-10] MEDS ORDERED: NS 1,000 ML IV SCH ×2 (09:25→19:20)
[2025-01-10] MEDS ORDERED: Nitrofurantoin100 M1 PO (09:41)
[2025-01-10] MEDS ORDERED: OXYC5 (09:41)
[2025-01-10] MEDS ORDERED: PROZAC2010 PO (09:42)
[2025-01-10 09:45] LABS: Albumin, Blood 3.3 g/dL (3.4-5.0); Albumin/Globulin Ratio 0.7 (0.8-1.8); Bilirubin, Total 1.9 mg/dL (0.1-1.0); Bun/Creatinine Ratio 42.8 (12.0-20.0); Calcium, Blood 9.4 mg/dL (8.5-10.1); Creatinine, Blood 0.56 mg/dL (0.40-1.00); Globulin, Blood 4.7 g/dL (2.2-4.0); Potassium, Blood 5.4 mmol/L (3.5-5.5)
[2025-01-10 10:03] LABS: Source, Urine Straight Cath
[2025-01-10] MEDS ORDERED: Ondansetron HCl 2 MG / ML 2ML Vial IV ONE (10:10)
[2025-01-10 10:18] LABS: Appearance, Urine Clear (Clear); Bilirubin, Urine Neg (Neg); Blood, Urine 3+ (Neg); Color, Urine Amber (P-Yellow); Glucose Qualitative, Urine 3+ (Neg); Ketones, Urine 1+ (Neg); Leukocyte Esterase, Urine 1+ (Neg); Nitrite, Urine Pos (Neg); Protein, Urine 4+ (Neg); Specific Gravity, Urine 1.025 (1.003-1.022); Urobilinogen, Urine 1+ (Normal)
[2025-01-10 10:25] LABS: Amorphous Light (0-Heavy); Bacteria Many /hpf; Renal Epithelial Rare /hpf (0-Rare); Squamous Epithelial Cells Few /hpf (Few)
[2025-01-10 10:26] LABS: Hyaline Casts 0-2 /lpf (0-2)
[2025-01-10 11:02] LABS: Base Excess Venous 4.1 mmol/L; Bicarbonate Venous 27.5 mmol/L (24.0-30.0); PCO2 Venous 44.6 mmHg (38-42); pH Blood Venous 7.42 (7.34-7.37)
[2025-01-10] MEDS ORDERED: Ketorolac Tromethamine 30mg Vial IV ONE ×2 (11:20→14:05)
[2025-01-10] MEDS ORDERED: MetroNIDAZOLE 500MG/NS 100 ml 100 ML IV ONE ×2 (11:20→14:05)
[2025-01-10] MEDS ORDERED: CefTRIAXone Sodium 1,000 MG in NS 50 ML IV ONE (11:20)
[2025-01-10] MEDS ORDERED: CefTRIAXone Sodium 1,000 MG in NS 100 ML IV ONE (14:05)
[2025-01-10] MEDS ORDERED: HydrALAZINE HCl 20 MG / ML 1ML Vial IV PRN (14:45)
[2025-01-10] MEDS ORDERED: FentaNYL Citrate 50 MCG/ML 2 ML Injection IV PRN (14:50)
[2025-01-10] MEDS ORDERED: Ondansetron HCl 2 MG / ML 2ML Vial IV PRN (14:50)
[2025-01-10] MEDS ORDERED: FLU VACC TS2024-25(6MOS UP)/PF 45 MCG/0.5 ML SYRINGE IM ONE (15:00)
[2025-01-10 15:11] VITALS: BP 132/69
[2025-01-10 15:13] VITALS: BP 132/69
[2025-01-10 16:31] LABS: Calcium, Blood 8.3 mg/dL (8.5-10.1); Creatinine, Blood 0.62 mg/dL (0.40-1.00)
[2025-01-10] MEDS ORDERED: Potassium Chloride 60 MEQ IV ONE (16:45)
[2025-01-10] MEDS ORDERED: Potassium Chl 20MEQ/Water100ML 100 ML IV SCH (16:50)
--- NOTE | 2025-01-10 17:21 | NUR ---
END OF SHIFT PT SLEEPING. S/O AT BEDSIDE SLEEPING ON COT. IV POTASSIUM REPLACEMENT BAG 1 OF 3 INFUSING LEFT HAND. WILL CONTINUE TO MONITOR.
[2025-01-10] MEDS ORDERED: Insulin Regular 100 UNIT/ML 10ML Vial SC SCH (18:00)
--- NOTE | 2025-01-10 19:17 | NUR ---
LAB UPDATE PRIMARY RN RECIEVED PHONE CALL FOR LA OF 2.6. THIS RN CALLED HOSPITLAIST TO UPDATE- RECIEVED ORDER FOR NS @ 125/HR AND LA RECHECK IN 3 HRS.
[2025-01-10 20:52] VITALS: BP 129/71
[2025-01-10] MEDS ORDERED: Lactobacil 2-S.Thermo-Bifido 1 1 Cap PO SCH (21:00)
[2025-01-11] VITALS (19 sets, daily range): BP systolic 85–151; BP diastolic 54–87
[2025-01-11] MEDS ORDERED: MetroNIDAZOLE 500MG/NS 100 ml 100 ML IV SCH
--- NOTE | 2025-01-11 00:45 | NUR ---
CALL TO HOSPITALIST. NOTIFIED HOSPITALIST OF CRITICAL LACTIC OF 2.1, SEE CRITICAL VALUE DOCUMENTATION. PT HAD RECEIVED 3 BAGS OF K. DISCUSSED WITH RELATIONSHIP ADVISOR. ORDERS RECEIVED FOR TELEMETRY. K LABS TO BE DRAWN IN AM PER ROUTINE ORDERS.
--- NOTE | 2025-01-11 01:06 | NUR ---
TELE COMMUNICATION AFIB [id number]
[2025-01-11 05:17] LABS: BASOPHILS ABSOLUTE AUTO 0.02 K/mm3 (0.00-0.23); BASOPHILS PERCENT AUTO 0 % (0-2); EOSINOPHILS PERCENT AUTO 0 % (0-6); Hematocrit 34.6 % (33.0-51.0); Hemoglobin 11.6 g/dL (11.5-16.0); IMMATURE GRAN PERCENT AUTO 1 % (0-1); LYMPHOCYTES ABSOLUTE AUTO 0.77 K/mm3 (0.84-5.20); LYMPHOCYTES PERCENT AUTO 6 % (21-46); MONOCYTES ABSOLUTE AUTO 0.55 K/mm3 (0.16-1.47); MONOCYTES PERCENT AUTO 4 % (4-13); Mean Corpuscular HGB 29.8 pg (26.0-34.0); Mean Corpuscular HGB Conc 33.5 g/dL (31.5-36.5); Mean Corpuscular Volume 89 fL (80-100); Mean Platelet Volume 9.9 fL (9.1-12.4); NEUTROPHILS ABSOLUTE AUTO 12.28 K/mm3 (1.96-9.15); NEUTROPHILS PERCENT AUTO 89 % (41-73); Platelet Count 145 K/mm3 (150-400); RDW Coefficient Variation 14.5 % (11.7-14.2); RDW Standard Deviation 46.9 fL (35.1-46.3); Red Blood Cell Count 3.89 M/mm3 (3.80-5.20); White Blood Cell Count 13.82 K/mm3 (4.00-11.30)
[2025-01-11 05:34] LABS: Albumin, Blood 2.6 g/dL (3.4-5.0); Albumin/Globulin Ratio 0.7 (0.8-1.8); Bilirubin, Total 0.9 mg/dL (0.1-1.0); Bun/Creatinine Ratio 37.4 (12.0-20.0); Calcium, Blood 8.4 mg/dL (8.5-10.1); Creatinine, Blood 0.72 mg/dL (0.40-1.00); Globulin, Blood 3.8 g/dL (2.2-4.0); Potassium, Blood 4.3 mmol/L (3.5-5.5); Total Protein, Blood 6.4 g/dL (6.4-8.2)
--- NOTE | 2025-01-11 07:30 | NUR ---
SHIFT SUMMARY NOC. PT ADMIT FOR AMS AND FOUND TO HAVE ACUTE EMMA. PT HAS BEEN NPO SINCE 0000. PT A/O TO SELF AND FAMILY AND IS VERY [place]. PT LETHARGIC FOR FIRST 1/2 OF SHIFT. PT BECAME MORE ALERT AND AWAKE EARLY THIS AM. BED ALARM SET FOR SAFETY, PT DID NOT SET OFF ALARM. PT FLACC SCALE MINIMAL AND NO SIGNS OF ACUTE PAIN. PT PLACED ON TELEMETRY EARLY THIS AM TO MONITOR CARDIAC FUNCTION POST K INFUSIONS. HELD AM INSULIN FOR CJ D/T NPO STATUS AND NO PLANNED PROCEDURE TIME OR CONFIRMATION. PT INCONTINENT OF URINE AND VOIDING. PT'S 0000 SCHEDULED ABX WAS STARTED BY DID NOT INFUSED D/T CLAMP. LABORER DRYING DEPARTMENT DISCUSSED WITH PHARMACIST RAOUL, INSTRUCTED TO ADMINISTER WHEN NOTICED, UPDATE EMAR, AND NEXT DOSE TO BE GIVEN AT 1000 TO PUT BACK ON SCHEDULE. REPORT GIVEN TO ONCOMING NURSE AND NOTIFIED OF THIS. CALL LIGHT IN REACH.
[2025-01-11] MEDS ORDERED: CefTRIAXone Sodium 1,000 MG in NS 100 ML IV SCH (09:00)
[2025-01-11] MEDS ORDERED: Lactated Ringer's 1,000 ML IV ONE ×2 (12:57→15:32)
[2025-01-11] MEDS ORDERED: Bupivacaine 0.5% HCl 5 MG/ML 30MLVIAL ONE (13:05)
--- NOTE | 2025-01-11 13:09 | NUR ---
pt to or via bed/rsally
[2025-01-11] MEDS ORDERED: propofoL 20 ML IV ONE (13:17)
[2025-01-11] MEDS ORDERED: FentaNYL Citrate 50 MCG/ML 2 ML Injection ONE (13:17)
--- NOTE | 2025-01-11 13:22 | NUR ---
PATIENT TRANSFERRED OFF UNIT FOR PROCEDURE AT APPROX 1310
--- NOTE | 2025-01-11 13:27 | NUR ---
PT IN PACU FOR PREOP
[2025-01-11] MEDS ORDERED: SuccINYLCHOLINE Chloride 100 MG/5 ML 5MLSYR ONE (13:56)
[2025-01-11] MEDS ORDERED: Dexamethasone Sod Phos 10 MG/ML 1ML VIAL ONE (14:22)
[2025-01-11] MEDS ORDERED: Ondansetron HCl 2 MG / ML 2ML Vial ONE (14:22)
[2025-01-11] MEDS ORDERED: Sugammadex Sodium 200 MG/2ML SDV (100 MG/ML) ONE (14:56)
[2025-01-11] MEDS ORDERED: Rocuronium Bromide 10 MG/ML 5ML Injection IV ONE (15:04)
[2025-01-11] MEDS ORDERED: HydrALAZINE HCl 20 MG / ML 1ML Vial IV PRN (15:10)
--- NOTE | 2025-01-11 16:16 | NUR ---
to room 231 from pacu Pt to room 231 from pacu via gurney. alert to verbal stimuli. vss. Belly soft. 4 lap sites present. family at bedside. will continue to monitor. scds applied.
--- NOTE | 2025-01-11 17:25 | NUR ---
end of shift pt resting comfortably. vss. eating meal tray
[2025-01-11] MEDS ORDERED: Insulin Regular 100 UNIT/ML 10ML Vial SC SCH (21:00)
--- NOTE | 2025-01-12 01:58 | NUR ---
CALL TO HOSPITALIST. NEW ORDERS RECEIVED FOR TYLENOL 650MG Q 6 HOURS PRN FOR PAIN.
[2025-01-12] MEDS ORDERED: Acetaminophen 325 MG TABLET PO PRN (02:30)
[2025-01-12 03:55] VITALS: BP 150/74
--- NOTE | 2025-01-12 04:26 | NUR ---
PROGRESS NOTE. AFTER CHANGING PT'S ATTENDS, PT BECAME RESTLESS AND BEGAN PULLING AT TELEMETRY CORDS AND IV. PT REDIRECTABLE BUT REQUIRING STAFF TO PREVENT CORD PULLING. CALL OUT TO HOSPITALIST AT THIS TIME.
[2025-01-12] MEDS ORDERED: OLANZapine 10 MG Vial IM ONE (04:35)
[2025-01-12 07:07] LABS: BASOPHILS ABSOLUTE AUTO 0.01 K/mm3 (0.00-0.23); BASOPHILS PERCENT AUTO 0 % (0-2); EOSINOPHILS PERCENT AUTO 0 % (0-6); Hematocrit 27.7 % (33.0-51.0); Hemoglobin 9.3 g/dL (11.5-16.0); IMMATURE GRAN ABSOLUTE AUTO 0.03 K/mm3 (0.00-0.10); IMMATURE GRAN PERCENT AUTO 1 % (0-1); LYMPHOCYTES ABSOLUTE AUTO 0.44 K/mm3 (0.84-5.20); LYMPHOCYTES PERCENT AUTO 7 % (21-46); MONOCYTES ABSOLUTE AUTO 0.32 K/mm3 (0.16-1.47); MONOCYTES PERCENT AUTO 5 % (4-13); Mean Corpuscular HGB Conc 33.6 g/dL (31.5-36.5); Mean Corpuscular Volume 89 fL (80-100); Mean Platelet Volume 9.8 fL (9.1-12.4); NEUTROPHILS PERCENT AUTO 88 % (41-73); Platelet Count 116 K/mm3 (150-400); RDW Coefficient Variation 14.5 % (11.7-14.2); RDW Standard Deviation 46.8 fL (35.1-46.3)
[2025-01-12 07:30] LABS: Bun/Creatinine Ratio 48.5 (12.0-20.0); Calcium, Blood 7.8 mg/dL (8.5-10.1); Creatinine, Blood 0.62 mg/dL (0.40-1.00); Potassium, Blood 3.8 mmol/L (3.5-5.5)
--- NOTE | 2025-01-12 07:43 | NUR ---
SHIFT SUMMARY NOC. PT ADMIT FOR AMS AND NOW POD 1 FOR LAP EMMA. LAP SITES X4 ARE C/D/I. PT VOIDING MINIMAL DARK URINE, HOSPITALIST AWARE. PT A/O TO SELF AND FAMILY ONLY. PT'S FLACC SCORE MINIMAL THIS SHIFT, PT REPOSITIONS WELL W/O FACIAL GRIMACING. NEW ORDERS RECIEVED FOR TYLENOL, PLEASE SEE PREV NOTE. PT BECAME RESTLESS PULLING AT CORDS, NEW ORDERS RECEIVED TO D/C TELEMETRY AND GIVE ZYPREXA X1. PT RESTED AND RELAXED AFTER MEDICATION. BED ALARM SET FOR SAFETY. CALL LIGHT IN RECH.
[2025-01-12 09:04] VITALS: BP 143/92
[2025-01-12] MEDS ORDERED: ONDA4 PO (11:00)
[2025-01-12 13:53] VITALS: BP 112/65
--- NOTE | 2025-01-12 13:53 | NUR ---
DISCHARGED REVIEWED DC INSTRUCTIONS W/SPOUSE. VERBALIZED UNDERSTANDING. PT GOT UP TO BSC AND VOIDED. VSS. IV DC'D. PT LEFT UNIT IN WC, ACCOMPANIED BY SPOUSE AND CAREGIVER, WHO HAD POSSESSIONS AND DC PAPERWORK IN HAND, TO RIDE OUTSIDE.
== END 2025-01-12 13:49 | disposition home or self-care (01) | DRG 853 ==
LOC: ER 08:22 → SURS 12:34
PROVIDERS: Student in an Organized Health Care Education/Training Program; ADMIT Family Medicine
PROC: 0FT44ZZ Resection of Gallbladder, Percutaneous Endoscopic Approach (ICD-10-PCS; principal; 2025-01-10)
PROC: 3E03329 Introduction of Other Anti-infective into Peripheral Vein, Percutaneous Approach (ICD-10-PCS; 2025-01-11)
DX: A41.9 Sepsis, unspecified organism (principal); G92.8 Other toxic encephalopathy; K80.00 Calculus of gallbladder with acute cholecystitis without obstruction; E87.1 Hypo-osmolality and hyponatremia; N18.4 Chronic kidney disease, stage 4 (severe); N39.0 Urinary tract infection, site not specified; F03.A3 Unspecified dementia, mild, with mood disturbance; Z66 Do not resuscitate; R65.20 Severe sepsis without septic shock; I48.91 Unspecified atrial fibrillation; E11.22 Type 2 diabetes mellitus with diabetic chronic kidney disease; I12.9 Hypertensive chronic kidney disease with stage 1 through stage 4 chronic kidney disease, or unspecified chronic kidney disease; E78.5 Hyperlipidemia, unspecified; M19.90 Unspecified osteoarthritis, unspecified site; F32.A Depression, unspecified; I35.0 Nonrheumatic aortic (valve) stenosis; K21.9 Gastro-esophageal reflux disease without esophagitis; E87.8 Other disorders of electrolyte and fluid balance, not elsewhere classified; H91.90 Unspecified hearing loss, unspecified ear; E11.65 Type 2 diabetes mellitus with hyperglycemia; E86.0 Dehydration; Z90.49 Acquired absence of other specified parts of digestive tract; Z87.81 Personal history of (healed) traumatic fracture; Z88.0 Allergy status to penicillin; Z88.2 Allergy status to sulfonamides; Z88.5 Allergy status to narcotic agent; Z88.1 Allergy status to other antibiotic agents; Z88.8 Allergy status to other drugs, medicaments and biological substances; Z79.811 Long term (current) use of aromatase inhibitors; Z79.891 Long term (current) use of opiate analgesic; Z79.899 Other long term (current) drug therapy; Z98.890 Other specified postprocedural states; Z98.42 Cataract extraction status, left eye; Z98.41 Cataract extraction status, right eye; Z85.3 Personal history of malignant neoplasm of breast; Z90.710 Acquired absence of both cervix and uterus; Z87.891 Personal history of nicotine dependence
CPT/HCPCS: 36415; 70450; 74177; 80048; 80053; 81001; 82140; 82803; 82947; 83605; 83735; 84484; 85025; 87086; 88304; 96374-59; 99285-25; A9270; C1729; J0330; J0696; J1100; J1815; J1885; J2405; J2704; J3010; J3480; J7030; J7120; P9612; Q9967

== ENCOUNTER → 2025-01-22 | Outpatient (CLI) | payer MEDICARE, OTHER ==
[~2025-01-22] MED LIST changes: +Nitrofurantoin100 M1 PO; +ONDA4 PO; +OXYC5
[2025-01-22 18:35] LABS: Source, Urine Clean Catch
[2025-01-22 19:48] LABS: Appearance, Urine Hazy (Clear); Bilirubin, Urine Neg (Neg); Blood, Urine Neg (Neg); Color, Urine Yellow (P-Yellow); Glucose Qualitative, Urine Neg (Neg); Ketones, Urine Neg (Neg); Leukocyte Esterase, Urine Neg (Neg); Nitrite, Urine Neg (Neg); Protein, Urine Neg (Neg); Specific Gravity, Urine 1.015 (1.003-1.022); Urobilinogen, Urine 2+ (Normal)
[2025-01-22 20:00] LABS: Amorphous Light (0-Heavy); Bacteria Mod /hpf; Mucus Mod (0-Heavy); Red Blood Cells, Urine 0-2 /hpf (0-2); Squamous Epithelial Cells Mod /hpf (Few); Transitional Epithelial Cells Rare /hpf (0-Rare); White Blood Cells, Urine 0-2 /hpf (0-5)
[2025-01-22 20:01] LABS: Calcium Oxalate Crystals Few /hpf
[2025-01-22 22:12] LABS: BASOPHILS ABSOLUTE AUTO 0.06 K/mm3 (0.00-0.23); BASOPHILS PERCENT AUTO 1 % (0-2); EOSINOPHILS ABSOLUTE AUTO 0.06 K/mm3 (0.00-0.68); EOSINOPHILS PERCENT AUTO 1 % (0-6); Hematocrit 35.9 % (33.0-51.0); Hemoglobin 11.6 g/dL (11.5-16.0); IMMATURE GRAN ABSOLUTE AUTO 0.07 K/mm3 (0.00-0.10); IMMATURE GRAN PERCENT AUTO 1 % (0-1); LYMPHOCYTES ABSOLUTE AUTO 1.37 K/mm3 (0.84-5.20); LYMPHOCYTES PERCENT AUTO 13 % (21-46); MONOCYTES ABSOLUTE AUTO 0.51 K/mm3 (0.16-1.47); MONOCYTES PERCENT AUTO 5 % (4-13); Mean Corpuscular HGB 29.3 pg (26.0-34.0); Mean Corpuscular HGB Conc 32.3 g/dL (31.5-36.5); Mean Corpuscular Volume 91 fL (80-100); Mean Platelet Volume 9.4 fL (9.1-12.4); NEUTROPHILS PERCENT AUTO 81 % (41-73); Platelet Count 412 K/mm3 (150-400); RDW Coefficient Variation 14.3 % (11.7-14.2); RDW Standard Deviation 47.8 fL (35.1-46.3); Red Blood Cell Count 3.96 M/mm3 (3.80-5.20); White Blood Cell Count 10.87 K/mm3 (4.00-11.30)
[2025-01-22 22:54] LABS: Alanine Aminotransfer (ALT/SGP <6 U/L (12-78); Albumin, Blood 2.5 g/dL (3.4-5.0); Albumin/Globulin Ratio 0.8 (0.8-1.8); Alk Phos 86 U/L (50-136); Anion Gap 8 mmol/L (3-11); Aspartate Aminotrans (AST/SGOT 18 U/L (12-37); Bilirubin, Total 0.7 mg/dL (0.1-1.0); Blood Urea Nitrogen 13 mg/dL (8-24); Bun/Creatinine Ratio 16.9 (12.0-20.0); CO2, Blood 31 mmol/L (21-32); Calcium, Blood 7.8 mg/dL (8.5-10.1); Chloride, Blood 97 mmol/L (98-108); Creatinine, Blood 0.77 mg/dL (0.40-1.00); Globulin, Blood 3.3 g/dL (2.2-4.0); Glomerular Filtration Rate 74 (60-); Glucose, Blood 210 mg/dL (70-99); Potassium, Blood 3.5 mmol/L (3.5-5.5); Sodium, Blood 132 mmol/L (136-145); Total Protein, Blood 5.8 g/dL (6.4-8.2)
== END ==
LOC: LAB 18:33 → LAB SHORT 18:33
PROVIDERS: Hospitalist
DX: N39.0 Urinary tract infection, site not specified (principal)
CPT/HCPCS: 80053; 81001; 85025; 87077; 87086; 87186

== ENCOUNTER → 2025-02-20 | Outpatient (CLI) | payer MEDICARE, OTHER ==
[2025-02-20 19:05] LABS: Source, Urine Clean Catch
[2025-02-20 19:29] LABS: Appearance, Urine Cloudy (Clear); Blood, Urine 3+ (Neg); Color, Urine Amber (P-Yellow); Glucose Qualitative, Urine Neg (Neg); Ketones, Urine Neg (Neg); Leukocyte Esterase, Urine 3+ (Neg); Nitrite, Urine Pos (Neg); Protein, Urine 2+ (Neg); Urobilinogen, Urine 4+ (Normal); pH, Urine 6.5 (5.0-8.0)
[2025-02-20 19:35] LABS: Bilirubin, Urine 2+ (Neg)
[2025-02-20 19:36] LABS: Bacteria Many /hpf; Calcium Oxalate Crystals Mod /hpf; Squamous Epithelial Cells Mod /hpf (Few)
[2025-02-20 19:37] LABS: Mucus Mod (0-Heavy); Transitional Epithelial Cells Rare /hpf (0-Rare)
== END ==
LOC: LAB 12:45 → LAB SHORT 12:45
PROVIDERS: Hospitalist
DX: R39.0 Extravasation of urine (principal)
CPT/HCPCS: 81001; 87086